=== PATIENT | male | born 1950 | race Caucasian/White ===

== ENCOUNTER 2022-06-02 07:39 | Day surgery (SDC) | payer MEDICARE, SELFPAY ==
--- NOTE | 2022-06-02 | PATH_ITS ---
[facility] Accession Number: [id number] No. of containers..02 Tissue . 01 Material submitted: . PART A: colon - CECUM POLYP PART B: colon - ASCENDING COLON POLYP . 01 Diagnosis: A. Cecum, Polyp, Biopsy: Tubular adenoma. . B. Ascending Colon, Polyp, Biopsy: Tubular adenoma. [facility] 06/04/2022 1122 Local . 01 Electronically signed: . Jessi Ocasio MD, Pathologist NPI- [id number] . 01 Gross description: . Part A: CECUM POLYP: Received in formalin are 2 fragment(s) of العر[place], soft tissue measuring 0.1 x 0.1 x 0.1 cm to 0.3 x 0.2 x 0.2 cm submitted entirely in 1 cassette(s) Part B: ASCENDING COLON POLYP: Received in formalin are 3 fragment(s) of العر[place], soft tissue measuring 0.2 x 0.1 x 0.1 cm to 0.7 x 0.7 x 0.4 cm submitted entirely in 1 cassette(s) /MATTIE 06/03/2022 1927 Local . 01 Pathologist provided ICD-10: D12.0, D12.2 . 01 CPT . 579310, 716449 Specimen Comment: A courtesy copy of this report has been sent to [phone] Performed at: 01 [facility] [address] [place] [id number] MD Stef Woods MD Phone: [phone]
[2022-06-02 08:01] VITALS: BP 195/90; PULSE 77; RESP 16; TEMP 36.6; O2SAT 97; BMI 24.6
--- NOTE | 2022-06-02 08:03 | PM.HP.1 ---
History of Present Illness History of Present Illness Date Patient Seen: 06/02/22 Time Patient Seen: 08:04 Chief complaint: SDC Narrative: Personal history of colon polyps. I did Keny's last exam but have not seen the report. Meds Home Medications and Allergies Home Medications Medication Instructions Recorded Confirmed Type No Known Home Medications 06/02/22 06/02/22 History Allergies Allergy/AdvReac Type Severity Reaction Status Date / Time No Known Drug Allergies Allergy Verified 06/02/22 07:55 Review of Systems Review of Systems ROS: Yes All systems reviewed with the patient and are negative except as otherwise documented Exam Const General: cooperative HENMT Head: normal to inspection Eyes General: appearance normal, both eyes and all related structures Neck Neck: normal visual inspection Chest Chest: normal inspection of the chest Resp Effort & Inspection: normal respiratory effort Cardio Rate: regular rate GI Inspection: normal to inspection Skin General: no rashes or lesions noted Neuro General: patient alert and patient awake Extrem General: normal to inspection and no pedal edema Psych Appearance: grossly normal Assessment & Plan Assessment & Plan narrative: 71-year-old male with a personal history of colon polyps. Colonoscopy is pursued today.
--- NOTE | 2022-06-02 08:05 | PM.PREOP ---
Pre-operative Note Interval Note History & Physical reviewed/Exam performed by Physician: Yes Changes to H&P: No ASA Class (for procedural sedation): II
[2022-06-02] MEDS: LACTATED RINGERS 1,000 ML 42 ML IV (08:14)
--- NOTE | 2022-06-02 08:57 | P.OP.COLON_ITS ---
Operative Date/Time/Diagnoses Date of procedure: 06/02/22 Time of procedure: 08:58 Pre-op diagnosis: Personal history of colon polyps Post-op diagnosis: same Procedure & Clinicians Study performed: Colonoscopy with hot snare polypectomy and cold forceps polypectomy Same procedure as scheduled: Yes Indications: Personal history of colon polyps Surgeon: Casper Degroot Procedure Notes SCOAP/Timeout: Done Procedure in detail: After the risks and benefits were explained, written and verbal informed consent was obtained. The patient was brought into the procedure room and placed into the left lateral decubitus position. Please see anesthesia notes for sedation details. Digital rectal examination was accomplished. The scope was introduced into the patient and advanced under direct visualization to the cecum as id entified by the appendiceal orifice and ileocecal valve. The scope was slowly withdrawn to carefully examine the mucosa for any defects or lesions. Comprehensive imaging was accomplished throughout the rectum including the dentate line. The colon was decompressed, the scope was then removed from the patient who tolerated the procedure well. Adult colonoscope Bowel prep adequate Scope withdrawal time: 11 minutes Sedation minutes: 20 Complications: none Impression: There was some mild diverticulosis in the left colon. In the cecum there was a diminutive 4 mm polyp removed with cold forceps. In the descending colon there was a sessile 16-17 mm polyp removed with hot snare. Grade 1 to grade 2 internal hemorrhoids were noted on direct views. No additional pathology appreciated throughout. Endoscopic diagnosis 1. Colon polyps 2. Diverticulosis 3. Grade 2 hemorrhoids Post-procedure Plan for aftercare: 1. Await histopathology 2. Repeat colonoscopy 3 years. Disposition: PACU
[2022-06-02 09:01] VITALS: BP 104/65; PULSE 73; RESP 19; TEMP 36.4; O2SAT 99
[2022-06-02 09:12] VITALS: BP 123/59; PULSE 57; RESP 19; TEMP 36.4; O2SAT 97
== END 2022-06-02 09:25 | disposition home or self-care (01) ==
PROVIDERS: Referring Provider Internal Medicine Gastroenterology; Visit Provider Internal Medicine Gastroenterology
PROC: 0DJD8ZZ Inspection of Lower Intestinal Tract, Via Natural or Artificial Opening Endoscopic (ICD-10-PCS; CPT 45378; principal; 2022-06-02 08:30)
DX: Z12.11 Encounter for screening for malignant neoplasm of colon (principal); Z86.010 Personal history of colon polyps; K64.1 Second degree hemorrhoids; K57.30 Diverticulosis of large intestine without perforation or abscess without bleeding; D12.0 Benign neoplasm of cecum; D12.2 Benign neoplasm of ascending colon
CPT/HCPCS: 45385; 45380; J2704